=== PATIENT | female | born 1990 | race Two or more races ===

== ENCOUNTER 2016-04-14 20:54 | Emergency (ER) | payer SELFPAY ==
[~2016-04-14] VITALS: Ht 149.9 cm; Wt 56.7 kg
[2016-04-14 21:05] VITALS: BP 119/86
[2016-04-14 21:34] LABS: Urine Bilirubin Negative (Negative); Urine Blood Negative /uL (Negative); Urine Color Yellow (Yellow); Urine Glucose Normal (Normal); Urine Ketone Negative (Negative); Urine Mucus FEW (None Seen); Urine RBC 3 /hpf (0 - 4); Urine Squamous Epithelial Cell FEW /hpf (<5)
[2016-04-14 21:35] LABS: Urine Nitrite POSITIVE (Negative)
== END 2016-04-14 22:33 | disposition left against medical advice (07) ==
LOC: ER 20:57
DX: R10.9 Unspecified abdominal pain (principal); M54.9 Dorsalgia, unspecified; Z53.21 Procedure and treatment not carried out due to patient leaving prior to being seen by health care provider
CPT/HCPCS: 81001; 81025